=== PATIENT | male | born 1940 | race Caucasian/White ===

== ENCOUNTER 2024-07-08 19:51 | Emergency (ER) | payer MEDICARE, OTHER, SELFPAY ==
[2024-07-08 19:55] VITALS: BP 137/96
[2024-07-08 20:03] VITALS: BP 137/96
--- NOTE | 2024-07-08 20:10 | ED.GENMED ---
Addendum entered and electronically signed by Kelsey Woodruff PA-C 07/12/24 09:22:
urine culture shows aerococcus which is potentuially sensitive to PCN; pt is on augmentin
no treatment change
Original Note:
History of Present Illness
General
Chief Complaint: Fatigue
Source: patient and ambulance crew
Exam Limitations: none
Time Seen by Provider: 07/08/24 19:52
Nursing documentation reviewed up to this point in time: agreed with
History of Present Illness
History of Present Illness:
84-year-old male past medical history of previous stroke hyperlipidemia, diabetes presenting to the emergency department today with concerns of generalized weakness fatigue in the setting of 2 weeks of loose bowel movements. Denies significant
vomiting but has had decreased oral intake. Denies any chest pain shortness of breath fevers.
Past History
Past History
ED Past Medical History: HTN, NIDDM and Other (Chronic pain)
Social History
Tobacco: Non-smoker
Alcohol: None
Living: alone
Review of Systems
Review of Systems
Allergies reviewed?: Yes
All Other Systems: ROS reviewed and negative except as documented in HPI and ROS
Phy Exam
Physical Exam
Physical Exam:
GENERAL: Alert , in no apparent distress
EYE: pupils equal and reactive
NECK: Supple, no significant adenopathy.
ENT: o/p clr, mmm.
CARDIAC: Regular rate and rhythm .
LUNGS: Clear breath sounds bilaterally, no acute respiratory distress, no wheezes/rales/rhonchi
ABDOMEN: Soft, without focal tenderness, no r/g, no cvat
NEUROLOGICAL: Alert and oriented, no focal neuro deficits
SKIN: Warm and dry, skin intact.
MUSCULOSKELETAL: No edema, well perfused.
PSYCH: Normal and appropriate interaction.
Course
Orders/Labs/Results
Orders:
Orders
07/08/24 19:54
C difficile Antigen & Toxins Urgent
[place] Source: Feces/Stool
Specimen Description:
Date Specimen was Collected: 07/08/24
Time Specimen was Collected: 23:49
Stool Culture Urgent
[place] Source: Feces/Stool
Specimen Description:
Date Specimen was Collected: 07/08/24
Time Specimen was Collected: 23:49
07/08/24 19:55
EKG [Electrocardiogram (*1)] Urgent
Reason for Study: Fatigue / Weakness
EKG- Treatment ONCE
07/08/24 20:12
Complete Blood Count/With Diff Urgent
Comprehensive Metabolic Panel Urgent
Lactic Acid Urgent
Lipase Urgent
TSH Reflex To Free T4 Urgent
07/08/24 21:06
Chest [CR Chest - 2 Views ] Urgent
Comment:
Reason For Exam: cough right sided adventitous lung sounds
07/08/24 21:55
0.9% Sodium Chloride 500 ml [Nss] 500 ml IV BOLUS
07/08/24 22:05
Urinalysis Reflex To Culture Urgent
Date Specimen was Collected: 07/08/24
Time Specimen was Collected: 22:03
Urine Microscopic Reflex Cult Urgent
Urine Culture Urgent
[place] Source: U
Specimen Description:
Date Specimen was Collected: 07/08/24
Time Specimen was Collected: 22:03
07/08/24 23:45
Amoxicillin 875 mg/Clav 125 mg [Augmentin 875 mg/125 mg] 1 tablet PO NOW STA
Azithromycin [Zithromax] 500 mg PO NOW STA
Ipratropium/Albuterol Sulfate [Duoneb] 3 ml INH R NOW ONE
Ondansetron Orally Disint [Zofran Odt (Orally Disintegrating)] 4 mg PO NOW STA
Abnormal Lab Results
07/08/24 07/08/24
20:12 22:05
RBC 4.09 L 10^6/uL
(4.70-6.10)
Hgb 12.8 L g/dL
(13.0-18.0)
Hct 36.2 L %
(39.0-52.0)
MCH 31.3 H pg
(27.0-31.0)
Absolute Monos (auto) 0.7 H 10^3/uL
(0.1-0.6)
Monocytes % 9.4 H %
(1.7-9.3)
Sodium 134 L mmol/L
(135-145)
Glucose 132 H mg/dl
(70-99)
Lactic Acid 2.7 H mmol/L
(0.7-2.0)
Total Protein 5.9 L g/dl
(6.3-8.2)
Albumin 3.1 L g/dl
(3.5-5.0)
Ur Occult Blood Reflex 1+ A
(Negative)
Leukocyte Esterase Rfl 1+ A
(Negative)
Urine WBC (Reflex) 26-30 A /HPF
(0-5)
Urine Bacteria (Reflex) Many A
(Negative)
Urine Albumin (Reflex) 1+ A
(Neg - Trace)
07/08/24 20:12
07/08/24 20:12
Vital Signs
Initial and Last Documented VS:
Initial Vital Signs
Pulse Resp BP
77 16 137/96
07/08/24 19:55 07/08/24 19:55 07/08/24 19:55
Last Documented Vital Signs
Temp Pulse Resp BP Pulse Ox
98.1 F 89 19 182/91 97
07/08/24 20:03 07/09/24 02:15 07/09/24 02:15 07/09/24 00:00 07/09/24 00:45
MDM/Problems Addressed
MDM/Problems Addressed:
84-year-old male presenting to the emergency department today with concerns of generalized weakness fatigue over the past 2 weeks in the setting of loose bowel movements as well. Decreased appetite no vomiting. No chest pain shortness of breath
fevers. Patient does have an ongoing cough. Patient has significant bronchial lung sounds potential slight rhonchi to the right lower lobe. X-ray without obvious findings but concern for early pneumonia concerning worsening respiratory status.
Otherwise vital signs are normal. Patient started on antibiotics and also given a breathing treatment. Patient claims he felt much improved concerning this plan to treat as outpatient. Return precautions were given.
*Critical Care Note
Total Time (30-74mins, 75-104mins- exclusive of procedures): Not Applicable
ED Attending Note
-
Portions of this chart may have been created with voice recognition software.� Occasional wrong word or��sound alike� substitutions may have occurred due to the inherent limitations of voice recognition software.
Discharge Plan
Departure
Patient Disposition: Home (Routine Discharge)
Date of Disposition: 07/09/24
Time of Disposition: 02:18
Patient with high blood pressure during this ER visit?: Yes
Condition: Good
Covid-19: Not Applicable
Discharge Problem:
Pneumonia
Instructions: Pneumonia in adults
Prescriptions:
New
amoxicillin-pot clavulanate 875-125 mg tablet
1 tab PO BID 7 Days Qty: 14 0RF
azithromycin 500 mg tablet
500 mg PO DAILY 2 Days Qty: 2 0RF
loperamide [Imodium A-D] 2 mg capsule
2 mg PO Q6H PRN (Reason: loose stool) Qty: 5 0RF
No Action
nifedipine 90 mg Tablet Extended Release
90 mg PO DAILY
glipizide 10 mg Tablet Extended Release 24hr
10 mg PO BID
tamsulosin [Flomax] 0.4 mg Capsule
0.4 mg PO DAILY
metformin 1,000 mg Tablet
1,000 mg PO BID
hydroxychloroquine 200 mg Tablet
200 mg PO DAILY
escitalopram oxalate [Lexapro] 10 mg Tablet
10 mg PO DAILY
insulin NPH isoph U-100 human 100 unit/mL (3 mL) Insulin Pen
0 unit SC QPM
Patient Comments:
01/02/22- family does not know units or last times taking for any medication
cyanocobalamin (vitamin B-12) 1,000 mcg/mL Solution
1,000 mcg IM DAILY Qty: 100 0RF
acetaminophen 325 mg Tablet
650 mg PO Q4HPRN PRN (Reason: Mild Pain / Temp > 101) Qty: 0 0RF
oxycodone 15 mg Tablet
30 mg PO TID Qty: 10 0RF
atorvastatin 40 mg Tablet
40 mg PO QPM Qty: 0 0RF
aspirin 81 mg Tablet,Chewable
81 mg PO DAILY Qty: 0 0RF
clopidogrel 75 mg Tablet
75 mg PO DAILY Qty: 0 0RF
Referrals:
Konstantin Richardson MD [Family Provider] -
Activity Restrictions/Additional Instructions:
You came to the emergency department today with concerns of generalized weakness fatigue and also ongoing cough. Here there is concern for pneumonia. Please take the prescribed antibiotics and also take Imodium to help with diarrhea. Return for
any worsening, new or concerning symptoms.
Interventions
Interventions:
*Risk Screen - Suicide Last Done: 07/08/24 20:03
*General Assessment Last Done: 07/08/24 20:03
*Neglect/Abuse Screening Last Done: 07/08/24 20:03
*ED- Fall Risk Assessment Last Done: 07/08/24 20:03
*ED COVID-19 Vaccine History Last Done: 07/08/24 20:03
Discharge Date and Time
Print Language: SURINAMESE
[2024-07-08 20:24] LABS: % Basophils 0.4 % (0-2); % Eosinophils 1.7 % (0-6); % Immature Granulocytes 0.5 % (0-0.5); % Lymphocytes 24.1 % (20.5-51.1); % Monocytes 9.4 % (1.7-9.3); % Neutrophils 63.9 % (42.2-75.2); Absolute Eosinophils 0.1 10^3/uL (0-0.7); Absolute Lymphocytes 1.8 10^3/uL (1.2-3.4); Absolute Monocytes 0.7 10^3/uL (0.1-0.6); Absolute Neutrophils 4.9 10^3/uL (1.4-6.5); Hematocrit 36.2 % (39.0-52.0); Hemoglobin 12.8 g/dL (13.0-18.0); Mean Corp Hgb Conc. 35.4 g/dL (33.0-37.0); Mean Corpuscular Hgb 31.3 pg (27.0-31.0); Mean Corpuscular Volume 88.5 fL (80.0-94.0); Mean Platelet Volume 8.6 fL (7.4-10.4); Nucleated Red Blood Cells % 0 % (-); Platelet Count 326 10^3/uL (130-400); Red Blood Cell Count 4.09 10^6/uL (4.70-6.10); Red Cell Dist. Width 12.2 % (11.5-14.5); White Blood Cell Count 7.6 10^3/uL (4.8-10.8)
[2024-07-08 20:42] LABS: Lactic Acid 2.7 mmol/L (0.7-2.0)
[2024-07-08 20:52] LABS: ALT (SGPT) 19 U/L (0-50); AST (SGOT) 26 U/L (17-59); Albumin 3.1 g/dl (3.5-5.0); Alkaline Phosphatase 75 U/L (38-126); Blood Urea Nitrogen 19 mg/dl (9-20); Calcium 8.5 mg/dl (8.4-10.2); Carbon Dioxide 29 mmol/L (22-30); Chloride 98 mmol/L (98-107); Estimated Creatinine Clearance 85 ml/min; Glucose 132 mg/dl (70-99); Lipase 41 U/L (23-300); Potassium 3.7 mmol/L (3.5-5.1); Sodium 134 mmol/L (135-145); Total Bilirubin 0.9 mg/dl (0.2-1.3); Total Protein 5.9 g/dl (6.3-8.2); eGFR > 60.00
[2024-07-08 21:00] VITALS: BP 166/70
[2024-07-08 21:12] LABS: TSH Reflex To Free T4 2.99 uIU/ml (0.47-4.68)
[2024-07-08] MEDS: NSS 500 IV (22:03)
[2024-07-08 22:15] LABS: Urine Albumin 1+ (Neg - Trace); Urine Bilirubin Negative (Negative); Urine Character Slightly Cloudy (Clear); Urine Color Yellow; Urine Glucose Negative (Negative); Urine Ketone Negative (Negative); Urine Leukocyte 1+ (Negative); Urine Nitrite Negative (Negative); Urine Occult Blood 1+ (Negative); Urine Specific Gravity 1.015 (<1.030); Urine Urobilinogen Negative (Neg - 1+)
[2024-07-08 22:23] LABS: Urine Squamous Cell 16-20 /LPF (Few)
[2024-07-08 22:24] LABS: Urine Bacteria Many (Negative); Urine Red Blood Cell None Seen /HPF (0-2); Urine White Cell 26-30 /HPF (0-5)
[2024-07-09] VITALS: BP 182/91
[2024-07-09] MEDS: ZOFRAN ODT (ORALLY DISINTEGRATING) 4 MG PO (00:11)
[2024-07-09] MEDS: ZITHROMAX 500 MG PO (00:11)
[2024-07-09] MEDS: AUGMENTIN 875 MG/125 MG 1 TABLET PO (00:11)
[2024-07-09] MEDS: DUONEB 3 ML INH (00:11)
[2024-07-09 02:22] VITALS: BP 171/71
== END 2024-07-09 02:50 | disposition home or self-care (01) ==
LOC: EMR 19:51
PROVIDERS: Physician Assistant; EMERGENCY PHYSICIAN Emergency Medicine; FAMILY PHYSICIAN Family Medicine
DX: J18.9 Pneumonia, unspecified organism (principal); I10 Essential (primary) hypertension; E78.5 Hyperlipidemia, unspecified; E11.9 Type 2 diabetes mellitus without complications
CPT/HCPCS: 99285; 94640; 71046; 80053; 81003; 81015; 83605; 83690; 84443; 85025; 87077; 87086; 93005

== ENCOUNTER 2024-07-28 23:48 | Inpatient (IN) | payer MEDICARE, OTHER, SELFPAY ==
[2024-07-28] VITALS (8 sets, daily range): BP systolic 147–179; BP diastolic 61–95
--- NOTE | 2024-07-28 18:17 | ED.GENMED ---
History of Present Illness
General
Chief Complaint: Male Genito-Urinary Symptoms
Source: patient
Exam Limitations: none
Time Seen by Provider: 07/28/24 18:07
Nursing documentation reviewed up to this point in time: agreed with
History of Present Illness
History of Present Illness:
Patient is a 84-year-old male who reports he has not urinated since early this morning normally. He did urinate a little bit in the afternoon but had a lot of pain with urination. He reports he had diarrhea last week. He denies any fever or
chills. He did mention some left flank pain.
Past History
Past History
ED Past Medical History: HTN, NIDDM and Other (Chronic pain)
Social History
Tobacco: Non-smoker
Alcohol: None
Living: alone
Review of Systems
Review of Systems
Allergies reviewed?: Yes
All Other Systems: ROS reviewed and negative except as documented in HPI and ROS
Constitutional: Reports no symptoms; Denies fever, fatigue or chills
EENT: Reports no symptoms
Respiratory: Reports no symptoms
Cardiac: Reports no symptoms
ABD/GI: Reports no symptoms; Denies abdominal pain, nausea or vomiting
: Reports dysuria, flank pain and urgency
Musculoskeletal: Reports no symptoms
Skin: Reports no symptoms
Neurological: Reports no symptoms
Psychiatric: Reports no symptoms
Phy Exam
General Physical Exam
General Presentation: no apparent distress
General age: appears stated age
General Skin: warm and dry
General Habitus: normal
General Mental: alert
General Hydration: appears well hydrated
Gastrointestinal Exam
Gastrointestinal Exam: normal bowel sounds, non tender and soft
Neurological Exam
Neurological Exam: alert and oriented x3
Musculoskeletal Exam
Musculoskeletal Exam: full ROM
Skin Exam
Skin Exam: normal color and warm/dry
Psychiatric Exam
Psychiatric Exam: normal mood/affect
Course
Orders/Labs/Results
Orders:
Orders
07/28/24 18:24
IV Insert/Care/Rem.- Treatment PRN
0.9% Sodium Chloride 1000 ml [Nss] 1,000 ml IV BOLUS
07/28/24 19:03
Complete Blood Count/With Diff Urgent
Comprehensive Metabolic Panel Urgent
Magnesium Urgent
Urinalysis Reflex To Culture Urgent
Date Specimen was Collected: 07/28/24
Time Specimen was Collected: 18:40
Urine Microscopic Reflex Cult Urgent
Urine Culture Urgent
[place] Source: U
Specimen Description:
Date Specimen was Collected: 07/28/24
Time Specimen was Collected: 18:40
07/28/24 19:12
CT Abd/pel Without Iv Or Oral Urgent
Comment:
Reason For Exam: flank pain /prescribeddysuria
07/28/24 21:20
Add On- LAB Urgent
Tests Added?: magesium
07/28/24 21:21
Piperacillin/Tazo 3.375 Gram [Zosyn] 3.375 gram in 50 ml IV NOW
Potassium Chloride 10% Elixir [KCl Elixir] 40 meq PO NOW STA
07/28/24 21:44
Potassium Chloride [KCl] 40 meq 0.9% Sodium Chloride 250 ml [Nss] 250 ml IV NOW
07/28/24 22:05
EKG [Electrocardiogram (*1)] Urgent
Reason for Study: Other
Other Reason for Exam: low potassium
EKG- Treatment ONCE
07/28/24 22:41
Magnesium Sulfate 2 Gram/50 ml [Magnesium Sulfate] 2 gram in 50 ml IV NOW
07/28/24 23:12
Admit/Transfer Patient As Directed
Co-Sign Provider:
Level of Care: Inpatient admission
Assign to:: Telemetry
Physician / Group: Jose Sinha
Diagnosis: sepsis, UTI, hypokalemia, hypomagnesium
Reason for Telemetry: Arrhythmia
Date to Stop Telemetry: 07/31/24
Time to Stop Telemetry: 11:00
Reason for Hospitalization: sepsis, UTI, hypokalemia, hypomagnesium
Expected length of stay greater than two midnights?: Yes
ELOS- Estimated Length of Stay in days: 3
I certify the patient meets the requirements for IP care: Yes
PRN Pain Medication Management As Directed
May give lesser potent ordered pain med per pt: Yes
preference::
Protocol:: Medication orders for pain may be administered in a
manner that supports deferring to patient preference
when the pt is:
- Requesting an ordered lesser potent pain medication.
Least to most potent pain medications are defined
as: acetaminophen < NSAID < tramadol < opioids
(morphine, oxycodone, hydromorphone).
- Requesting a lesser dose of the same medication IF
ORDERED.
- Requesting a less intrusive route of administration
if both routes are prescribed by the provider (PO <
IV).
07/28/24 23:14
Code Status As Directed
Resuscitation Status: Full Code
07/28/24 23:29
STOOL [C difficile Antigen & Toxins] Routine
[place] Source: Feces/Stool
Specimen Description:
Stool Culture Routine
[place] Source: Feces/Stool
Specimen Description:
07/31/24 11:00
DC Protocol for Telemetry ONCE
Abnormal Lab Results
07/28/24
19:03
WBC 15.6 H 10^3/uL
(4.8-10.8)
RBC 4.15 L 10^6/uL
(4.70-6.10)
Hct 37.4 L %
(39.0-52.0)
MCH 31.6 H pg
(27.0-31.0)
Abs Immat Gran (auto) 0.1 H 10^3/uL
(0-0.05)
Absolute Neuts (auto) 11.7 H 10^3/uL
(1.4-6.5)
Absolute Monos (auto) 1.0 H 10^3/uL
(0.1-0.6)
Neutrophils % 75.3 H %
(42.2-75.2)
Lymphocytes % 17.2 L %
(20.5-51.1)
Potassium 2.9 L mmol/L
(3.5-5.1)
Chloride 95 L mmol/L
(98-107)
Carbon Dioxide 37 H mmol/L
(22-30)
Creatinine 0.5 L mg/dL
(0.7-1.3)
Glucose 140 H mg/dl
(70-99)
Calcium 8.1 L mg/dl
(8.4-10.2)
Magnesium 1.2 L mg/dl
(1.6-2.3)
Total Protein 6.1 L g/dl
(6.3-8.2)
Albumin 3.4 L g/dl
(3.5-5.0)
Ur Occult Blood Reflex 4+ A
(Negative)
Leukocyte Esterase Rfl 3+ A
(Negative)
Urine RBC 50-60 A /HPF
(0-2)
Urine WBC (Reflex) >100 A /HPF
(0-5)
Urine Bacteria (Reflex) Few A
(Negative)
Urine Albumin (Reflex) 3+ A
(Neg - Trace)
07/28/24 19:03
07/28/24 19:03
Vital Signs
Initial and Last Documented VS:
Initial Vital Signs
BP
175/95
07/28/24 17:45
Last Documented Vital Signs
Temp Pulse Resp BP Pulse Ox
97.9 F 107 23 154/87 97
07/28/24 17:49 07/29/24 00:15 07/29/24 00:15 07/29/24 00:07 07/29/24 00:11
Policy Change Clerk consulted with Physician
Policy Change Clerk consulted with physician?: Yes
Name of Physician Consulted: Giulia
MDM/Problems Addressed
MDM/Problems Addressed:
Patient is an 84-year-old male who presented to the ER for evaluation of difficulty urinating. He described pain with urination and had some difficulty emptying his bladder. He was not retaining on arrival. He does mention he had diarrhea last
week and had a little flank pain. Patient presents in no acute distress his white count however is elevated 15,000 and his urine is obviously infected. CAT scan is negative for hydro no stone there is circumferential urinary bladder wall
thickening surrounding inflammatory changes consistent with cystitis.
Prior micro reviewed and IV Zosyn ordered. In addition patient was found to have low potassium and given 40 milliequivalents IV and 1 dose orally will admit to the hospitalist
Chronic conditions affecting care:
IDDM
*Radiology
Radiology exam reviewed: radiology read reviewed
*Pulse Oximetry
Patient hypoxic: no
*Critical Care Note
Total Time (30-74mins, 75-104mins- exclusive of procedures): Not Applicable
Data Reviewed
Review of Other/Old Records Reveals: Labs
ED Attending Note
-
Portions of this chart may have been created with voice recognition software.� Occasional wrong word or��sound alike� substitutions may have occurred due to the inherent limitations of voice recognition software.
Discharge Plan
Departure
Patient Disposition: Admit
Date of Disposition: 07/28/24
Time of Disposition: 22:06
Admit to: Med/Surg
Admit to doctor: Hospitalist
Presentation/result/management discussed w/ accepting MD/DO: Hospitalist
Patient with high blood pressure during this ER visit?: Yes
Condition: Fair
Covid-19: Not Applicable
Discharge Problem:
Acute UTI, Acute hypokalemia
Interventions
Interventions:
*Risk Screen - Suicide Last Done: 07/28/24 19:17
*General Assessment Last Done: 07/28/24 17:49
*Neglect/Abuse Screening Last Done: 07/28/24 19:17
*ED- Fall Risk Assessment Last Done: 07/28/24 19:17
*ED COVID-19 Vaccine History Last Done: 07/28/24 19:17
ED-Male Genitourinary Assessment Last Done: 07/28/24 19:17
[2024-07-28] MEDS: NSS 1000 IV (19:13)
[2024-07-28 19:15] LABS: % Basophils 0.3 % (0-2); % Eosinophils 0.4 % (0-6); % Immature Granulocytes 0.4 % (0-0.5); % Lymphocytes 17.2 % (20.5-51.1); % Monocytes 6.4 % (1.7-9.3); % Neutrophils 75.3 % (42.2-75.2); Absolute Basophils 0.1 10^3/uL (0-0.2); Absolute Eosinophils 0.1 10^3/uL (0-0.7); Absolute Immature Granulocytes 0.1 10^3/uL (0-0.05); Absolute Lymphocytes 2.7 10^3/uL (1.2-3.4); Absolute Neutrophils 11.7 10^3/uL (1.4-6.5); Hematocrit 37.4 % (39.0-52.0); Hemoglobin 13.1 g/dL (13.0-18.0); Mean Corpuscular Hgb 31.6 pg (27.0-31.0); Mean Corpuscular Volume 90.1 fL (80.0-94.0); Nucleated Red Blood Cells % 0 % (-); Platelet Count 219 10^3/uL (130-400); Red Blood Cell Count 4.15 10^6/uL (4.70-6.10); Red Cell Dist. Width 14.4 % (11.5-14.5); Urine Albumin 3+ (Neg - Trace); Urine Bilirubin Negative (Negative); Urine Character Cloudy (Clear); Urine Color Brown; Urine Glucose Negative (Negative); Urine Ketone Negative (Negative); Urine Leukocyte 3+ (Negative); Urine Nitrite Negative (Negative); Urine Occult Blood 4+ (Negative); Urine Urobilinogen Negative (Neg - 1+); White Blood Cell Count 15.6 10^3/uL (4.8-10.8)
[2024-07-28 19:31] LABS: Urine Red Blood Cell 50-60 /HPF (0-2); Urine Squamous Cell 0-2 /LPF (Few)
[2024-07-28 19:32] LABS: Urine Bacteria Few (Negative); Urine White Cell >100 /HPF (0-5)
[2024-07-28 19:34] LABS: ALT (SGPT) 21 U/L (0-50); AST (SGOT) 32 U/L (17-59); Albumin 3.4 g/dl (3.5-5.0); Alkaline Phosphatase 87 U/L (38-126); Blood Urea Nitrogen 15 mg/dl (9-20); Calcium 8.1 mg/dl (8.4-10.2); Carbon Dioxide 37 mmol/L (22-30); Chloride 95 mmol/L (98-107); Estimated Creatinine Clearance 99 ml/min; Glucose 140 mg/dl (70-99); Potassium 2.9 mmol/L (3.5-5.1); Sodium 140 mmol/L (135-145); Total Protein 6.1 g/dl (6.3-8.2); eGFR > 60.00
[2024-07-28] MEDS: KCL ELIXIR 40 MEQ PO (21:47)
[2024-07-28] MEDS: ZOSYN 50 IV (21:47)
[2024-07-28 21:53] LABS: Magnesium 1.2 mg/dl (1.6-2.3)
--- NOTE | 2024-07-28 22:07 | HPS.HSE ---
Addendum entered and electronically signed by Jose Sinha DO 07/28/24 23:51:
Patient seen and examined independently. Agree with findings and plan as set forth by LING Jones.
Patient is an 84y F with PMH significant for hypertension, RA, DM-II and chronic back pain who presents to ED complaining of urinary urgency. Patient describes a need to urinate / difficulty urinating. He states that he feels 'dried out' and
has trouble passing urine. Patient reports a prior history of UTI / prostatitis. He also notes recent issues with loose stools and fecal incontinence - reporting off-and-on diarrhea for the past 3-4 weeks.
Patient was seen in the ED here last month and diagnosed with pneumonia. He was discharged on Augmentin and Zithromax at that time. Urine testing done during that visit was positive for > 100k CFU of Aerococcus.
Ass:
UTI
Sepsis secondary to the above
Hypokalemia
Hypomagnesemia
Tachycardia
Benign Hypertension
DM-II
Depression
Chronic Pain Syndrome
Chronic Opioid Dependence
BPH
Plan:
Admit for further evaluation and treatment.
Continue IV abx pending culture data.
Check PSA.
Bladder scan protocol.
Follow for clinical improvement.
Continue IVFs / electrolyte replacement. Repeat in AM.
Monitor on tele overnight. Repeat EKG in AM.
EKG irregular - but appears to be consistent with sinus arrhythmia / PACs.
Consider Cardiology evaluation if confirmed A-Fib.
Hold PO hypoglycemic medications. Follow glucose and cover with SSI if needed.
Continue usual chronic pain regimen - follow-up with Pain Management as an outpatient.
Original Note:
Family Physician
-
Family Physician: Konstantin Richardson
Chief Complaint
-
urinary symptoms
History of Present Illness
Patient is a 84-year-old male with past medical history significant for hypertension, DM-II, rheumatoid arthritis, BPH, chronic pain syndrome/opioid dependence, depression and obesity who presented to [facility] ED for evaluation of difficulty urinating.
Patient reports that this afternoon he felt he needed to urinate and was unable to do so. He reported the discomfort to the facility nurse who sent him to ED for evaluation and treatment. Patient states he felt the urge to urinate but was unable to
go, after arriving in ED and getting fluids he was able to urinate a little bit and he reports he had significant pain the first time he went and has since improved with continued episodes of urinating. He denies any abdominal, flank or back pain.
He reports having pneumonia a few weeks ago. Denies any fever, chills, nausea, vomiting, constipation or diarrhea. Patient reports previous UTIs and issues with prostate.
Medical History
Past Medical History
Past Medical History: Reports Other
Additional Past Medical History:
Hypertension
DM-II
Rheumatoid Arthritis
BPH
Chronic Pain Syndrome / Opioid Dependence
Depression
Obesity
Past Surgical History: Reports Other
Additional Past Surgical History:
Left Shoulder Surgery
Left HERMAN
Multiple Knee Arthroscopies
Abdominal Herniorrhaphy
Cholecystectomy
Social History
Tobacco: Non-smoker
Alcohol: Occasional
Drug: None
Living: Alone
Family History
Family History: Adopted
Allergies / Home Medications
Allergies reflects when Allergies were last updated in [employer] [facility].
Home Medications with original date entered in [facility]
Allergy/Medication List:
Allergies
Allergy/AdvReac Type Severity Reaction Status Date / Time
levofloxacin [From Levaquin] Allergy Unknown Unknown Verified 07/08/24 20:01
morphine Allergy Unknown Unknown Verified 07/08/24 20:01
Home Medications
glipizide 10 mg tablet, extended release 24 hr 10 mg PO BID Diabetes 01/02/22
metformin 1,000 mg tablet 1,000 mg PO BID Diabetes 01/02/22
acetaminophen 500 mg tablet (Tylenol Extra Strength) 1,000 mg PO TID 07/28/24
ammonium lactate 12 % topical cream 1 applic topical DAILY arms and legs 07/28/24
bisacodyl 5 mg tablet,delayed release 5 mg PO DAILY 07/28/24
carvedilol 6.25 mg tablet 6.25 mg PO BID 07/28/24
duloxetine 20 mg capsule,delayed release 20 mg PO DAILY 07/28/24
emollient combination no.110 (Eucerin Intensive Repair lotion) 1 ea topical DAILY 07/28/24
furosemide 20 mg tablet 20 mg PO DAILYPRN PRN edema 07/28/24
loperamide 2 mg capsule (Imodium A-D) 2 mg PO Q6HPRN PRN loose stool 07/28/24
oxycodone 20 mg tablet 20 mg PO TID 07/28/24
polyethylene glycol 3350 17 gram oral powder packet (Miralax) 17 g PO DAILYPRN PRN constipation 07/28/24
psyllium husk 0.52 gram capsule 1.04 g PO DAILY 07/28/24
vit C 226 mg-vit E 90 mg-copper 0.8 mg-zinc oxide-lutein 5 mg capsule (PreserVision Lutein) 1 cap PO BID 07/28/24
zinc oxide 20 % topical ointment 1 applic topical DAILYPRN PRN incontinence/bowel leakage 07/28/24
zinc oxide 20 % topical ointment 1 applic topical TID bottom/gluteal fold 07/28/24
Review of Systems
-
History Source: Patient
Constitutional: Reports No Symptoms
EENT: Reports No Symptoms
Respiratory: Reports No Symptoms
Cardiac: Reports No Symptoms
Abdomen/GI: Reports No Symptoms
: Reports Dysuria and Difficulty Voiding
Musculoskeletal: Reports No Symptoms
Skin: Reports No Symptoms
Neurological: Reports No Symptoms
Endocrine: Reports No Symptoms
Hematologic/Lymphatic: Reports No Symptoms
Psych: Reports No Symptoms
Physical Exam
Vital Signs
Vital Signs
Temp Pulse Resp BP Pulse Ox
97.9 F 106 24 162/61 98
07/28/24 17:49 07/28/24 21:45 07/28/24 21:45 07/28/24 21:00 07/28/24 21:00
Physical Exam
General: Well Developed, Well Nourished, No Apparent Distress, Comfortable and Conversant
HEENT: NormoCephalic, Moist mucous membranes, Atraumatic, [place] Conjunctivae, Nose Appears Normal, Ears Appear Normal and Hearing Impaired
Respiratory: Clear and Non Labored Respirations
Cardiac: S1/S2 and Irregular Rhythm; No Murmur or Rub
GI: Soft, Non Tender, Non Distended and Normal Bowel Sounds; No Organomegaly
Rectal: Deferred by Provider
Genito-urinary: Turbid Urine and No costovertebral tender
Musculoskeletal: No Clubbing, No Cyanosis and No Edema
Skin: IV/Catheter Site
Neuro: Awake, Alert and Nonfocal/grossly intact
Psych: Calm
Laboratory Results
-
07/28/24 19:03
07/28/24 19:03
Laboratory Results
Total Bilirubin 1.0 mg/dl (0.2-1.3) 07/28/24 19:03
AST 32 U/L (17-59) 07/28/24 19:03
ALT 21 U/L (0-50) 07/28/24 19:03
Alkaline Phosphatase 87 U/L (38-126) 07/28/24 19:03
Data Reviewed
-
CT Scan: Report Reviewed by me (Abd/Pel: No hydronephrosis. No renal calculus. There is circumferential urinary bladder wall thickening with surrounding inflammatory changes consistent with cystitis. Colonic diverticulosis. Right basilar opacity
could represent atelectasis, less likely pneumonia.)
Lab Data: Labs Reviewed by me (WBC 15.6, Neut 75.3, K+ 2.9, Mag 1.2)
Impression/Plan
-
IMPRESSION/PLAN:
#sepsis likely 2/2 urinary tract infection
WBC 15.6, Neut 75.3
UA: indicative of UTI
Urine Cx: pending
Abd/Pel CT: No hydronephrosis. No renal calculus. There is circumferential urinary bladder wall thickening with surrounding inflammatory changes consistent with cystitis.
Colonic diverticulosis.
Right basilar opacity could represent atelectasis, less likely pneumonia.
- Admit to telemetry
- IV antibiotics
- Flomax
- supportive care
#hypokalemia
K+ 2.9
- monitor BMP
- replete as indicated
#hypomagnesium
Mag 1.2
- monitor BMP
- replete as indicated
#tachycardia
- EKG in morning
- maintain on telemetry
#Hypertension
- continue carvedilol, furosemide
#DM-II
- hold glipizide, metformin
- AccuCheck AC & HS
- SSI
#Chronic Pain Syndrome / Opioid Dependence
- continue oxycodone
- review with pain management
#Depression
- continue duloxetine
#Obesity
- encourage balanced diet with exercise for a goal of weight loss
#Rheumatoid Arthritis
#BPH
Code status: full code
DVT Prophylaxis: Lovenox sq
[2024-07-28] MEDS: KCL 270 MEQ IV (22:14)
[2024-07-28] MEDS: MAGNESIUM SULFATE 50 IV (22:53)
[2024-07-29 00:07] VITALS: BP 154/87
[2024-07-29 01:06] VITALS: BP 161/89
[2024-07-29] MEDS: LR 1000 IV (01:44)
[2024-07-29] MEDS: ZOSYN 50 IV ×4 (06:04→21:41)
[2024-07-29 06:08] LABS: Hematocrit 34.4 % (39.0-52.0); Hemoglobin 12.2 g/dL (13.0-18.0); Mean Corp Hgb Conc. 35.5 g/dL (33.0-37.0); Mean Corpuscular Hgb 31.6 pg (27.0-31.0); Mean Corpuscular Volume 89.1 fL (80.0-94.0); Platelet Count 216 10^3/uL (130-400); Red Blood Cell Count 3.86 10^6/uL (4.70-6.10); Red Cell Dist. Width 14.4 % (11.5-14.5); White Blood Cell Count 9.9 10^3/uL (4.8-10.8)
[2024-07-29] MEDS: ROXICODONE 20 MG PO ×3 (06:14→21:41)
[2024-07-29 06:27] LABS: Blood Urea Nitrogen 11 mg/dl (9-20); Calcium 7.6 mg/dl (8.4-10.2); Carbon Dioxide 39 mmol/L (22-30); Chloride 98 mmol/L (98-107); Estimated Creatinine Clearance 99 ml/min; Glucose 196 mg/dl (70-99); Magnesium 1.6 mg/dl (1.6-2.3); Potassium 2.8 mmol/L (3.5-5.1); Sodium 140 mmol/L (135-145); eGFR > 60.00
[2024-07-29 06:53] LABS: PSA, Total - Screen 1.05 ng/ml (0.0-4.0)
[2024-07-29 08:36] LABS: Glucose - Point of Care 193 mg/dl (70-99)
--- NOTE | 2024-07-29 08:46 | W.PN.HOSP.TC ---
Today's Communication/Plan
-
Potassium supplement, may need to hold Lasix until K has normalized
Assessment / Plan
Assessment / Plan
#sepsis likely 2/2 urinary tract infection
WBC 15.6-->9.9, better
UA: indicative of UTI
Urine Cx: pending (UTI 07/08/24 demonstrated Aerococcus, pt seen in ER for PNA and was dc on Augmentin)
Abd/Pel CT: No hydronephrosis. No renal calculus. There is circumferential urinary bladder wall thickening with surrounding inflammatory changes consistent with cystitis.
Colonic diverticulosis.
Right basilar opacity could represent atelectasis, less likely pneumonia.
- Admit to telemetry
- IV antibiotics (Zosyn3.375 IV q6h)
- Flomax
- supportive care
#hypokalemia
K+ 2.9-->2.8
change IVF and add standing dose of oral KCl
- monitor BMP
- replete as indicated
#hypomagnesium
Mag 1.2-->1.6
- monitor BMP
- replete as indicated
#tachycardia
- EKG in morning
- maintain on telemetry
#Hypertension
- continue carvedilol, furosemide
#DM-II
- hold glipizide, metformin
- AccuCheck AC & HS
- SSI
#Chronic Pain Syndrome / Opioid Dependence
- continue oxycodone
- review with pain management
#Depression
- continue duloxetine
#Obesity
- encourage balanced diet with exercise for a goal of weight loss
#Rheumatoid Arthritis
#BPH
Code status: full code
DVT Prophylaxis: Lovenox sq
Anticipated Discharge: > 48 hours
Subjective/Interval History
-
Date of Service: July 29, 2024
generally feeling better since admission
Objective Data
-
Labs:
Laboratory Results
07/29/24
05:52
WBC 9.9
Hgb 12.2 L
Hct 34.4 L
Plt Count 216
Sodium 140
Potassium 2.8 L
Chloride 98
Carbon Dioxide 39 H
BUN 11
Creatinine 0.5 L
Glucose 196 H
Calcium 7.6 L
Vital Signs:
Vital Signs
Temp Pulse Resp BP Pulse Ox
97.9 F 98 25 154/87 96
07/28/24 17:49 07/29/24 01:00 07/29/24 00:30 07/29/24 00:07 07/29/24 02:34
I&O
07/28/24 07/29/24 07/30/24
06:59 06:59 06:59
Intake Total 1130 / 1130
Output Total 1300 / 1300
Balance -170 / -170
Review of Systems
-
History Source: Patient and Coordinated Provider
Constitutional: Denies Fever
Respiratory: Reports No Symptoms
Cardiac: Reports No Symptoms
Genitourinary: Reports Dysuria, Frequency and Urgency
Physical Exam
-
General: Well Developed, Well Nourished and No Apparent Distress
HEENT: Normocephalic, Atraumatic and Moist Mucous Membranes
Respiratory: Clear to Auscultation; Negative Wheezes, Rales or Rhonchi
Cardiac: Regular Rhythm and S1/S2
GI: Soft, Nontender and Nondistended
Musculoskeletal: No Clubbing and No Cyanosis; Negative No Edema (trace edema)
Neuro: Awake and Alert
[2024-07-29 09:30] LABS: Glycohemoglobin (HgbA1c) 5.9 % (4.0-5.6)
--- NOTE | 2024-07-29 10:37 | CM ---
Patient seen at bedside in ED. Patient states that he now lives at [facility]; Personal care facility and uses the [facility] PT/OT there. Patient stated that he lives alone. Patient sstates he is independent but has been sick for the last month.
Patient PCP is Dr. Conn, but chart indicated Dr. Richardson and he uses the [facility] in [place]. Patient states that he currently has no assistance for staff at [facility]. Patient has been at [facility] and had [facility] nursing in his prior living
arrangement at the [facility]. Patient states that he has been relearning how to use the walker with [facility] pt. Patient was open to going to [facility] pending PT/OT assessment and physician assessments. CM will continue to follow for discharge
planning needs.
Plan; return to Personal Care with PT/OT vs SNF
[2024-07-29] MEDS: NOVOLOG FLEXPEN-LOW RESISTANCE SC (10:46)
[2024-07-29] MEDS: D5/0.45%NSS with KCL 20 MEQ 1000 IV (10:48)
[2024-07-29] MEDS: METAMUCIL, KONSYL PO (10:57)
[2024-07-29] MEDS: OCUVITE SOFTGEL 1 CAP PO ×2 (10:57→21:40)
[2024-07-29] MEDS: TYLENOL 1000 MG PO ×3 (10:57→21:41)
[2024-07-29 10:58] VITALS: BP 182/79
[2024-07-29] MEDS: DULCOLAX PO (10:58)
[2024-07-29] MEDS: FLOMAX 0.4 MG PO (10:58)
[2024-07-29] MEDS: CYMBALTA DELAYED RELEASE 20 MG PO (10:58)
[2024-07-29] MEDS: COREG 6.25 MG PO ×2 (10:59→21:40)
[2024-07-29] MEDS: HYDROPHOR 1 APPLIC TOPICAL (11:06)
[2024-07-29] MEDS: ZINC OXIDE OINTMENT 1 APPLIC TOPICAL ×3 (11:07→21:45)
[2024-07-29] MEDS: KCL ELIXIR PO (11:42)
[2024-07-29] MEDS: KCL ELIXIR 20 MEQ PO ×2 (11:48→21:40)
[2024-07-29 13:00] LABS: Glucose - Point of Care 311 mg/dl (70-99)
[2024-07-29] MEDS: NOVOLOG FLEXPEN-LOW RESISTANCE 4 UNITS SC (13:22)
--- NOTE | 2024-07-29 13:38 | WOUNDNOTE ---
[facility] RN NOTE: Reviewed chart and met with patient. Patient admitted with openings on buttocks likely related to MASD. Patient also admitted with stage 1 PI to heels and buttocks. He also has a rash on his left posterior leg but he denies itching.
Patient is incontinent of bowel and bladder and is wheelchair bound. He turns with some assistance and reports good appetite. 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 RN Roslyn aware. No-sting
barrier wipe and adhesive foam applied to heels. Heels off-loaded with pillows under calves. Calazime applied to buttocks and incontinence care provided. Order, discharge and care plan updated. Will follow as needed.
--- NOTE | 2024-07-29 13:45 | WOUNDNOTE ---
BUTTOCKS SKIN FOLDS
--- NOTE | 2024-07-29 13:46 | WOUNDNOTE ---
LEFT POSTERIOR LEG
--- NOTE | 2024-07-29 14:50 | PTCARENOTE ---
Patient admitted from the ER into room 413-01. Vital signs stable. Perineal care provided. Patient educated on use of call villegas and use of TV and bed controls. Patient verbalizes understanding of teaching. Denies pain. Reviewed plan of care with
patient. Patient verbalizes understanding of teaching and denies questions at this time. Resting comfortably in bed without complaint.
[2024-07-29 14:57] VITALS: BP 135/86
[2024-07-29 16:57] LABS: Glucose - Point of Care 242 mg/dl (70-99)
[2024-07-29] MEDS: NOVOLOG FLEXPEN-LOW RESISTANCE 2 UNITS SC (17:10)
[2024-07-29] MEDS: LOVENOX 40 MG SC (18:05)
[2024-07-29 18:15] VITALS: BMI 25.8
[2024-07-29 19:58] VITALS: BP 175/85
[2024-07-29 21:05] LABS: Glucose - Point of Care 250 mg/dl (70-99)
[2024-07-29 23:35] VITALS: BP 168/76
[2024-07-30] MEDS: D5/0.45%NSS with KCL 20 MEQ 1000 IV (00:30)
[2024-07-30 03:23] VITALS: BP 182/101
[2024-07-30] MEDS: ZOSYN 50 IV ×4 (03:54→21:29)
[2024-07-30] MEDS: APRESOLINE 5 MG IV (05:55)
[2024-07-30 07:10] VITALS: BP 182/105
[2024-07-30 07:31] LABS: Glucose - Point of Care 232 mg/dl (70-99)
[2024-07-30 07:55] LABS: % Basophils 0.8 % (0-2); % Eosinophils 5.2 % (0-6); % Immature Granulocytes 0.3 % (0-0.5); % Lymphocytes 18.5 % (20.5-51.1); % Monocytes 7.6 % (1.7-9.3); % Neutrophils 67.6 % (42.2-75.2); Absolute Basophils 0.1 10^3/uL (0-0.2); Absolute Eosinophils 0.4 10^3/uL (0-0.7); Absolute Lymphocytes 1.3 10^3/uL (1.2-3.4); Absolute Monocytes 0.5 10^3/uL (0.1-0.6); Absolute Neutrophils 4.8 10^3/uL (1.4-6.5); Hematocrit 36.8 % (39.0-52.0); Hemoglobin 12.6 g/dL (13.0-18.0); Mean Corp Hgb Conc. 34.2 g/dL (33.0-37.0); Mean Corpuscular Hgb 30.8 pg (27.0-31.0); Mean Platelet Volume 8.9 fL (7.4-10.4); Nucleated Red Blood Cells % 0 % (-); Platelet Count 225 10^3/uL (130-400); Red Blood Cell Count 4.09 10^6/uL (4.70-6.10); Red Cell Dist. Width 14.5 % (11.5-14.5); White Blood Cell Count 7.1 10^3/uL (4.8-10.8)
[2024-07-30 08:07] LABS: Blood Urea Nitrogen 8 mg/dl (9-20); Calcium 7.9 mg/dl (8.4-10.2); Carbon Dioxide 38 mmol/L (22-30); Chloride 96 mmol/L (98-107); Estimated Creatinine Clearance 99 ml/min; Glucose 216 mg/dl (70-99); Potassium 3.2 mmol/L (3.5-5.1); Sodium 139 mmol/L (135-145); eGFR > 60.00
--- NOTE | 2024-07-30 09:30 | PTCARENOTE ---
BP elevated this am 182/105- Dr Anne aware. Awaiting orders. plan of care on going
[2024-07-30] MEDS: NOVOLOG FLEXPEN-LOW RESISTANCE 2 UNITS SC (09:39)
[2024-07-30] MEDS: TYLENOL 1000 MG PO ×3 (09:40→21:29)
[2024-07-30] MEDS: OCUVITE SOFTGEL 1 CAP PO ×2 (09:40→21:28)
[2024-07-30] MEDS: ROXICODONE 20 MG PO ×3 (09:41→21:29)
[2024-07-30] MEDS: KCL ELIXIR 20 MEQ PO (09:41)
[2024-07-30] MEDS: COREG 6.25 MG PO ×2 (09:42→21:28)
[2024-07-30] MEDS: FLOMAX 0.4 MG PO (09:42)
[2024-07-30] MEDS: HYDROPHOR 1 APPLIC TOPICAL (09:43)
[2024-07-30] MEDS: ZINC OXIDE OINTMENT 1 APPLIC TOPICAL ×3 (09:45→21:30)
[2024-07-30] MEDS: DULCOLAX PO (09:46)
[2024-07-30] MEDS: METAMUCIL, KONSYL 1 PACKET PO (09:46)
[2024-07-30] MEDS: CYMBALTA DELAYED RELEASE 20 MG PO (09:49)
[2024-07-30 11:44] VITALS: BP 177/93
[2024-07-30 11:56] LABS: Glucose - Point of Care 281 mg/dl (70-99)
[2024-07-30] MEDS: NOVOLOG FLEXPEN-LOW RESISTANCE 3 UNITS SC (12:55)
--- NOTE | 2024-07-30 13:50 | W.PN.HOSP.TC ---
Today's Communication/Plan
-
Was at [facility], may benefit from short term SNF prior
PT/OT eval
Assessment / Plan
Assessment / Plan
#sepsis likely 2/2 urinary tract infection
WBC 15.6-->9.9-->7.7 better
UA: indicative of UTI
Urine Cx: mixed margaux (UTI 07/08/24 demonstrated Aerococcus, pt seen in ER for PNA and was dc on Augmentin)
Abd/Pel CT: No hydronephrosis. No renal calculus. There is circumferential urinary bladder wall thickening with surrounding inflammatory changes consistent with cystitis.
Colonic diverticulosis.
Right basilar opacity could represent atelectasis, less likely pneumonia.
- Admit to telemetry
will need bladder scan to determine if emptying bladder
- IV antibiotics (Zosyn3.375 IV q6h)
- Flomax
- supportive care
will probably benefit from outpt urologic evaluation. In past had seen urologist at [facility], does not remember name and has been years
#hypokalemia
K+ 2.9-->2.8-->3.2
will stop IVF and supplement orally, still holding Lasix
- monitor BMP
- replete as indicated
#hypomagnesium
Mag 1.2-->1.6
- monitor BMP
- replete as indicated
#tachycardia
- EKG in morning
- maintain on telemetry
#Hypertension
- continue carvedilol, will add low dose Norvasc and follow BP
#DM-II
- hold glipizide, metformin
- AccuCheck AC & HS
- SSI
#Chronic Pain Syndrome / Opioid Dependence
- continue oxycodone
- review with pain management
#Depression
- continue duloxetine
#Obesity
- encourage balanced diet with exercise for a goal of weight loss
#Rheumatoid Arthritis
#BPH
Code status: full code
DVT Prophylaxis: Lovenox sq
Anticipated Discharge: 24 - 48 hours
Subjective/Interval History
-
Date of Service: July 30, 2024
frequent urination
Objective Data
-
Labs:
Laboratory Results
07/30/24
07:05
WBC 7.1
Hgb 12.6 L
Hct 36.8 L
Plt Count 225
Sodium 139
Potassium 3.2 L
Chloride 96 L
Carbon Dioxide 38 H
BUN 8 L
Creatinine 0.6 L
Glucose 216 H
Calcium 7.9 L
Vital Signs:
Vital Signs
Temp Pulse Resp BP Pulse Ox
97.7 F 109 20 177/93 97
07/30/24 11:44 07/30/24 11:44 07/30/24 11:44 07/30/24 11:44 07/30/24 11:44
I&O
07/29/24 07/30/24 07/31/24
06:59 06:59 06:59
Intake Total 1130 / 1130 2110 / 2110
Output Total 1300 / 1300 2350 / 2350
Balance -170 / -170 -240 / -240
Review of Systems
-
History Source: Patient and Coordinated Provider
Constitutional: Denies Fever
Respiratory: Reports No Symptoms (short of breath with exertion)
Cardiac: Reports No Symptoms
Genitourinary: Reports Dysuria, Frequency and Urgency
Physical Exam
-
General: Well Developed, Well Nourished and No Apparent Distress
HEENT: Normocephalic, Atraumatic and Moist Mucous Membranes
Respiratory: Clear to Auscultation and Wheezes (minimal end expiratory wheeze); Negative Rales or Rhonchi
Cardiac: Regular Rhythm and S1/S2
GI: Soft, Nontender and Nondistended
Musculoskeletal: No Clubbing and No Cyanosis; Negative No Edema (trace edema)
Neuro: Awake and Alert
[2024-07-30] MEDS: D5/0.45%NSS with KCL 20 MEQ IV (15:05)
[2024-07-30] MEDS: NORVASC 5 MG PO (15:10)
[2024-07-30] MEDS: FLUSH (NSS) 2 FLUSH IV (15:13)
[2024-07-30 15:17] VITALS: BP 180/90
[2024-07-30 16:46] LABS: Glucose - Point of Care 310 mg/dl (70-99)
[2024-07-30] MEDS: NOVOLOG FLEXPEN-LOW RESISTANCE 4 UNITS SC (18:07)
[2024-07-30] MEDS: LOVENOX 40 MG SC (18:07)
[2024-07-30 19:30] VITALS: BP 174/86
[2024-07-30] MEDS: KCL 20 MEQ PO (21:28)
[2024-07-30 21:41] LABS: Glucose - Point of Care 202 mg/dl (70-99)
[2024-07-30 23:50] VITALS: BP 165/92; BP 168/89
[2024-07-31] VITALS (8 sets, daily range): BP systolic 117–188; BP diastolic 77–97; PULSE 85–89; O2SAT 96
[2024-07-31] MEDS: ZOSYN 50 IV ×4 (03:32→23:00)
[2024-07-31 06:42] LABS: % Eosinophils 6.9 % (0-6); % Immature Granulocytes 0.5 % (0-0.5); % Neutrophils 55.6 % (42.2-75.2); Absolute Basophils 0.1 10^3/uL (0-0.2); Absolute Eosinophils 0.4 10^3/uL (0-0.7); Absolute Lymphocytes 1.6 10^3/uL (1.2-3.4); Absolute Monocytes 0.6 10^3/uL (0.1-0.6); Absolute Neutrophils 3.5 10^3/uL (1.4-6.5); Hematocrit 37.6 % (39.0-52.0); Hemoglobin 12.8 g/dL (13.0-18.0); Mean Corpuscular Hgb 30.5 pg (27.0-31.0); Mean Corpuscular Volume 89.7 fL (80.0-94.0); Mean Platelet Volume 8.6 fL (7.4-10.4); Nucleated Red Blood Cells % 0 % (-); Platelet Count 227 10^3/uL (130-400); Red Blood Cell Count 4.19 10^6/uL (4.70-6.10); Red Cell Dist. Width 14.2 % (11.5-14.5); White Blood Cell Count 6.2 10^3/uL (4.8-10.8)
[2024-07-31 07:05] LABS: Blood Urea Nitrogen 8 mg/dl (9-20); Calcium 8.1 mg/dl (8.4-10.2); Carbon Dioxide 37 mmol/L (22-30); Chloride 96 mmol/L (98-107); Estimated Creatinine Clearance 99 ml/min; Glucose 175 mg/dl (70-99); Potassium 3.4 mmol/L (3.5-5.1); Sodium 138 mmol/L (135-145); eGFR > 60.00
[2024-07-31 08:00] LABS: Glucose - Point of Care 177 mg/dl (70-99)
[2024-07-31] MEDS: ROXICODONE 20 MG PO ×3 (09:22→21:15)
[2024-07-31] MEDS: OCUVITE SOFTGEL 1 CAP PO ×2 (09:23→20:16)
[2024-07-31] MEDS: TYLENOL 1000 MG PO ×3 (09:23→22:59)
[2024-07-31] MEDS: KCL 20 MEQ PO ×2 (09:23→20:16)
[2024-07-31] MEDS: CYMBALTA DELAYED RELEASE 20 MG PO (09:23)
[2024-07-31] MEDS: FLOMAX 0.4 MG PO (09:24)
[2024-07-31] MEDS: COREG 6.25 MG PO ×2 (09:24→20:16)
[2024-07-31] MEDS: NORVASC 5 MG PO (09:24)
[2024-07-31] MEDS: NOVOLOG FLEXPEN-LOW RESISTANCE 1 UNITS SC (09:25)
[2024-07-31] MEDS: DULCOLAX PO (09:25)
[2024-07-31] MEDS: METAMUCIL, KONSYL PO (09:26)
[2024-07-31] MEDS: ZINC OXIDE OINTMENT 1 APPLIC TOPICAL ×3 (09:26→21:16)
[2024-07-31] MEDS: HYDROPHOR 1 APPLIC TOPICAL (09:26)
[2024-07-31] MEDS: FLUSH (NSS) 2 FLUSH IV ×2 (09:27→18:19)
[2024-07-31 12:26] LABS: Glucose - Point of Care 272 mg/dl (70-99)
[2024-07-31] MEDS: NOVOLOG FLEXPEN-LOW RESISTANCE 3 UNITS SC (12:51)
--- NOTE | 2024-07-31 16:39 | W.PN.HOSP.TC ---
Today's Communication/Plan
-
start Mag supplement
recheck labs
continue Zosyn, though Ur cx on admit was neg
Assessment / Plan
Assessment / Plan
#sepsis likely 2/2 urinary tract infection
WBC 15.6-->9.9-->7.7-->6.2 better
UA: indicative of UTI
Urine Cx: mixed margaux (UTI 07/08/24 demonstrated Aerococcus, pt seen in ER for PNA and was dc on Augmentin)
Abd/Pel CT: No hydronephrosis. No renal calculus. There is circumferential urinary bladder wall thickening with surrounding inflammatory changes consistent with cystitis.
Colonic diverticulosis.
Right basilar opacity could represent atelectasis, less likely pneumonia.
- Admit to telemetry
will need bladder scan to determine if emptying bladder
- IV antibiotics (Zosyn3.375 IV q6h)
- Flomax
- supportive care
will probably benefit from outpt urologic evaluation. In past had seen urologist at [facility], does not remember name and has been years
put out 2000 cc during day yesterday, 2600 during night, had 169 cc post void yesterday
#hypokalemia
K+ 2.9-->2.8-->3.2-->3.4
will stop IVF and supplement orally, still holding Lasix
- monitor BMP
- replete as indicated
recheck K tomorrow, if normalized, plan to resume Lasix
#hypomagnesium
Mag 1.2-->1.6
- monitor BMP
- replete as indicated, start supplemental oral Mag
#tachycardia
- EKG in morning
- maintain on telemetry
#Hypertension
- continue carvedilol, will add low dose Norvasc and follow BP, should continue post dc
#DM-II
- hold glipizide, metformin
- AccuCheck AC & HS
- SSI
#Chronic Pain Syndrome / Opioid Dependence
- continue oxycodone
- review with pain management
#Depression
- continue duloxetine
#Obesity
- encourage balanced diet with exercise for a goal of weight loss
#Rheumatoid Arthritis
#BPH
was at [facility] prior to admission, CM will have to contact tomorrow regarding potential dc in near future, ? may require short term SNF
Code status: full code
DVT Prophylaxis: Lovenox sq
Anticipated Discharge: 24 - 48 hours
Subjective/Interval History
-
Date of Service: July 31, 2024
Voice is stronger, concerned about loose stools
Objective Data
-
Labs:
Laboratory Results
07/31/24
06:28
WBC 6.2
Hgb 12.8 L
Hct 37.6 L
Plt Count 227
Sodium 138
Potassium 3.4 L
Chloride 96 L
Carbon Dioxide 37 H
BUN 8 L
Creatinine 0.6 L
Glucose 175 H
Calcium 8.1 L
Vital Signs:
Vital Signs
Temp Pulse Resp BP Pulse Ox
97.8 F 93 20 117/78 96
07/31/24 11:00 07/31/24 11:00 07/31/24 11:00 07/31/24 11:00 07/31/24 11:00
I&O
07/30/24 07/31/24 08/01/24
06:59 06:59 06:59
Intake Total 0 / 2110 1300 / 1300
Output Total 2350 / 2350 4675 / 4675 500 / 500
Balance -240 / -240 -3375 / -3375 -500 / -500
Review of Systems
-
History Source: Patient and Coordinated Provider
Constitutional: Denies Fever
Respiratory: Reports No Symptoms (short of breath with exertion)
Cardiac: Reports No Symptoms
Genitourinary: Reports Dysuria, Frequency and Urgency
Physical Exam
-
General: Well Developed, Well Nourished and No Apparent Distress
HEENT: Normocephalic, Atraumatic and Moist Mucous Membranes
Respiratory: Clear to Auscultation and Wheezes (minimal end expiratory wheeze); Negative Rales or Rhonchi
Cardiac: Regular Rhythm and S1/S2
GI: Soft, Nontender and Nondistended
Musculoskeletal: No Clubbing and No Cyanosis; Negative No Edema (trace edema)
Neuro: Awake and Alert
[2024-07-31 17:27] LABS: Glucose - Point of Care 225 mg/dl (70-99)
[2024-07-31] MEDS: NOVOLOG FLEXPEN-LOW RESISTANCE 2 UNITS SC (18:18)
[2024-07-31] MEDS: LOVENOX 40 MG SC (18:19)
[2024-07-31] MEDS: MAGNESIUM OXIDE 500 MG PO (18:19)
[2024-07-31 21:25] LABS: Glucose - Point of Care 270 mg/dl (70-99)
[2024-08-01 03:29] VITALS: BP 167/88
[2024-08-01] MEDS: ZOSYN 50 IV ×4 (04:01→22:26)
[2024-08-01 07:10] VITALS: BP 187/94
[2024-08-01 08:20] LABS: % Basophils 1.2 % (0-2); % Eosinophils 8.9 % (0-6); % Immature Granulocytes 0.4 % (0-0.5); % Lymphocytes 28.8 % (20.5-51.1); % Monocytes 13.5 % (1.7-9.3); % Neutrophils 47.2 % (42.2-75.2); Absolute Basophils 0.1 10^3/uL (0-0.2); Absolute Eosinophils 0.4 10^3/uL (0-0.7); Absolute Lymphocytes 1.4 10^3/uL (1.2-3.4); Absolute Monocytes 0.7 10^3/uL (0.1-0.6); Absolute Neutrophils 2.3 10^3/uL (1.4-6.5); Hematocrit 38.9 % (39.0-52.0); Hemoglobin 12.9 g/dL (13.0-18.0); Mean Corp Hgb Conc. 33.2 g/dL (33.0-37.0); Mean Corpuscular Hgb 30.4 pg (27.0-31.0); Mean Corpuscular Volume 91.5 fL (80.0-94.0); Mean Platelet Volume 8.9 fL (7.4-10.4); Nucleated Red Blood Cells % 0 % (-); Platelet Count 230 10^3/uL (130-400); Red Blood Cell Count 4.25 10^6/uL (4.70-6.10); Red Cell Dist. Width 14.1 % (11.5-14.5)
[2024-08-01 08:21] LABS: Glucose - Point of Care 175 mg/dl (70-99)
[2024-08-01 09:11] LABS: Blood Urea Nitrogen 11 mg/dl (9-20); Calcium 8.3 mg/dl (8.4-10.2); Carbon Dioxide 36 mmol/L (22-30); Chloride 97 mmol/L (98-107); Estimated Creatinine Clearance 85 ml/min; Glucose 179 mg/dl (70-99); Magnesium 1.6 mg/dl (1.6-2.3); Potassium 3.8 mmol/L (3.5-5.1); Sodium 138 mmol/L (135-145); eGFR > 60.00
[2024-08-01] MEDS: NOVOLOG FLEXPEN-LOW RESISTANCE 1 UNITS SC (09:17)
[2024-08-01] MEDS: TYLENOL 1000 MG PO ×3 (09:18→22:22)
[2024-08-01] MEDS: ROXICODONE 20 MG PO ×3 (09:18→22:21)
[2024-08-01] MEDS: OCUVITE SOFTGEL 1 CAP PO ×2 (09:18→22:21)
[2024-08-01] MEDS: CYMBALTA DELAYED RELEASE 20 MG PO (09:19)
[2024-08-01] MEDS: KCL 20 MEQ PO ×2 (09:19→22:20)
[2024-08-01] MEDS: FLOMAX 0.4 MG PO (09:19)
[2024-08-01] MEDS: MAGNESIUM OXIDE 500 MG PO (09:19)
[2024-08-01] MEDS: COREG 6.25 MG PO ×2 (09:19→22:19)
[2024-08-01] MEDS: DULCOLAX 5 MG PO (09:19)
[2024-08-01] MEDS: HYDROPHOR 1 APPLIC TOPICAL (09:20)
[2024-08-01] MEDS: NORVASC 5 MG PO (09:20)
[2024-08-01] MEDS: METAMUCIL, KONSYL PO (09:20)
[2024-08-01] MEDS: ZINC OXIDE OINTMENT 1 APPLIC TOPICAL ×2 (09:21→17:06)
[2024-08-01 11:35] VITALS: BP 170/85
[2024-08-01 11:42] LABS: Glucose - Point of Care 329 mg/dl (70-99)
[2024-08-01] MEDS: NOVOLOG FLEXPEN-LOW RESISTANCE 4 UNITS SC (12:09)
--- NOTE | 2024-08-01 12:24 | W.PN.HOSP.TC ---
Today's Communication/Plan
-
continue IV abx
follow AM labs
dispo planning
Assessment / Plan
Assessment / Plan
Assessment:
Sepsis POA
UTI
- continue empiric Zosyn, day 08/04 - will switch to Augmentin
- continue Flomax
- follow bladder scans
- outpatient Urology follow up
Hypokalemia
- resolved
- holding oral Lasix
hypomagnesemia
- continue oral Mag
Tachycardia
- EKG in morning
- maintain on telemetry
Essential Hypertension
- continue carvedilol, Norvasc and follow BP
DM-II
- resume glipizide, metformin
- AccuCheck AC & HS
- SSI
Chronic Pain Syndrome / Opioid Dependence
- continue oxycodone
- review with pain management
Depression
- continue duloxetine
Obesity
- encourage balanced diet with exercise for a goal of weight loss
Rheumatoid Arthritis
BPH
DVT ppx: Lovenox
Code: Full
Anticipated Discharge: > 48 hours
Subjective/Interval History
-
Date of Service: August 01, 2024
resting comfortably, no complaints
Objective Data
-
Labs:
Laboratory Results
08/01/24
06:46
WBC 5.0
Hgb 12.9 L
Hct 38.9 L
Plt Count 230
Sodium 138
Potassium 3.8
Chloride 97 L
Carbon Dioxide 36 H
BUN 11
Creatinine 0.7
Glucose 179 H
Calcium 8.3 L
Vital Signs:
Vital Signs
Temp Pulse Resp BP Pulse Ox
97.9 F 85 20 187/94 97
08/01/24 07:10 08/01/24 09:19 08/01/24 07:10 08/01/24 09:19 08/01/24 09:45
I&O
07/31/24 08/01/24 08/02/24
06:59 06:59 06:59
Intake Total 1300 / 1300 920 / 920
Output Total 4675 / 4675 3125 / 3125
Balance -3375 / -3375 -2205 / -2205
Physical Exam
-
General: No Apparent Distress
HEENT: Normocephalic and Atraumatic
Respiratory: Negative Wheezes
Cardiac: Regular Rhythm and S1/S2
GI: Soft and Nontender
Genito-urinary: No Costovertebral Tender
Neuro: AO x 3
Psych: Calm
Data Reviewed
-
Total Time Spent with Patient (in minutes): 42
Labs: Labs Reviewed by me
[2024-08-01 15:15] VITALS: BP 135/77
--- NOTE | 2024-08-01 16:22 | CM ---
Received notification from attending that patient is medically cleared for discharge. He stated that he did not want to go to rehab even though that was the recommendation. Placed a call to patient's son, Amari, who also stated that if possible, they
(family) would rather he return right back to the [facility].
Placed a call to the [facility] and spoke with patient's RN, Jerald, who stated that patient's baseline that he provided is not accurate as he is w/c bound and sleeps on a chair. He self propels where he needs. Jerald stated that he was going to talk to
administration to determine if he could come right back. CM contact information provided.
CM will follow up with Jerald regarding their decision regarding taking patient back, and if they are unable, will have to review facilities with family.
Plan: Case management will continue to follow and assist with discharge planning. Back to [facility] SNF.
[2024-08-01 17:01] LABS: Glucose - Point of Care 259 mg/dl (70-99)
[2024-08-01] MEDS: NOVOLOG FLEXPEN-LOW RESISTANCE 3 UNITS SC (17:07)
[2024-08-01] MEDS: LOVENOX 40 MG SC (17:08)
[2024-08-01 19:43] VITALS: BP 171/94
[2024-08-01 21:24] LABS: Glucose - Point of Care 214 mg/dl (70-99)
[2024-08-01] MEDS: ZINC OXIDE OINTMENT TOPICAL (22:00)
[2024-08-01] MEDS: GLUCOPHAGE 1000 MG PO (22:20)
[2024-08-01] MEDS: GLUCOTROL XL (EXTENDED RELEASE) 10 MG PO (22:24)
[2024-08-01 23:51] VITALS: BP 141/76
[2024-08-02 03:42] VITALS: BP 136/80
[2024-08-02] MEDS: ZOSYN 50 IV ×2 (05:05→10:41)
[2024-08-02] MEDS: FLUSH (NSS) 2 FLUSH IV (05:06)
[2024-08-02 06:00] VITALS: BMI 23.9
[2024-08-02 07:38] LABS: Glucose - Point of Care 119 mg/dl (70-99)
[2024-08-02] MEDS: NOVOLOG FLEXPEN-LOW RESISTANCE SC (07:43)
[2024-08-02] MEDS: ROXICODONE 20 MG PO (08:09)
[2024-08-02] MEDS: GLUCOTROL XL (EXTENDED RELEASE) 10 MG PO (08:09)
[2024-08-02] MEDS: MAGNESIUM OXIDE 500 MG PO (08:10)
[2024-08-02] MEDS: FLOMAX 0.4 MG PO (08:11)
[2024-08-02] MEDS: GLUCOPHAGE 1000 MG PO (08:11)
[2024-08-02] MEDS: DULCOLAX 5 MG PO (08:11)
[2024-08-02] MEDS: OCUVITE SOFTGEL 1 CAP PO (08:11)
[2024-08-02] MEDS: CYMBALTA DELAYED RELEASE 20 MG PO (08:11)
[2024-08-02] MEDS: TYLENOL 1000 MG PO (08:11)
[2024-08-02] MEDS: KCL 20 MEQ PO (08:11)
[2024-08-02] MEDS: HYDROPHOR 1 APPLIC TOPICAL (08:15)
[2024-08-02] MEDS: NORVASC 5 MG PO (08:15)
[2024-08-02] MEDS: COREG 6.25 MG PO (08:15)
[2024-08-02] MEDS: METAMUCIL, KONSYL 1 PACKET PO (08:16)
[2024-08-02] MEDS: ZINC OXIDE OINTMENT 1 APPLIC TOPICAL (08:16)
[2024-08-02 08:17] LABS: Blood Urea Nitrogen 12 mg/dl (9-20); Calcium 8.7 mg/dl (8.4-10.2); Carbon Dioxide 34 mmol/L (22-30); Chloride 98 mmol/L (98-107); Estimated Creatinine Clearance 85 ml/min; Glucose 121 mg/dl (70-99); Potassium 4.1 mmol/L (3.5-5.1); Sodium 138 mmol/L (135-145); eGFR > 60.00
--- NOTE | 2024-08-02 10:10 | CM ---
Addendum entered by Sriram Martinez 08/02/24 11:45:
TATIANNA spoke to [facility] director of billing and she confirmed that pt is accepted for admission today.
Pt is aware, expressed to me his very unhappy feelings going to rehab and as soon as he was told that [facility] declined to accept him and SNF requested, pt became calm, expressed his agreement to [facility]. Pt stated he is very happy to live at [facility] and he trusts them.
to arrange transportation BLS. PMNC completed and left with .
[facility] nursing repprt: [phone]
Discharge instructions fax: [phone]
D/C plan: [facility] SNF today.
Original Note:
TATIANNA following re: discharge planning.
Reviewed pt's chart, met with pt and spoke to pt's son Danny over the phone to update on discharge plan progress.
According to MD pt is medically stable to be discharged today. Both pt and his son are aware, expressed their agreement with discharge. IMM reviewed, placed on chart, pt has a copy.
TATIANNA spoke to [facility] BAILEE RN [place] and he confirmed he spoke to their testing projects administrator and pt cannot be admitted back to [facility] because pt now required 2 people to assist with care and they requested pt goes to a SNF for
a short term rehab before pt's admission back to [facility].
TATIANNA spoke to pt's son Danny, he expressed his agreement with pt going to a SNF. A list of SNFs provided. pt's son preferred [facility] SNF as number one choice. Alternatives: [facility]'s home SNF or [facility] SNF. A referral tp above SNFs made.
TATIANNA spoke to [facility] director of billing and alerted her on pt's discharge today and [facility] SNF is number one choice. Per [facility] director of billing she will review a referral shortly and will come back to me.
D/C planb: possible [facility] SNF today.
Awaiting for determination.
[2024-08-02 11:32] VITALS: BP 158/82
[2024-08-02 11:51] LABS: Glucose - Point of Care 208 mg/dl (70-99)
--- NOTE | 2024-08-02 12:01 | PN.CDI ---
CDI
- -
CDI:
Physician Documentation Request
Admit Date: 07/28/24 23:48
Dear Doctor Shima,
Please review the following and provide your response in the progress notes.
Clinical Indicators:
Pt admitted with sepsis and UTI.
07/29 WO RN: ' Patient also admitted with stage 1 PI to heels and buttocks.'
Physician documentation of the type and location of wounds is required for compliant documentation. Based on the above clinical findings and your assessment, please provide the following in your progress note:
1. Location of the ulcer/wound, including laterality.
2. Type (etiology) of ulcer/wound:
Pressure injury to heels and buttocks POA
Non-presssure injury to heels and buttocks POA
Other
Use of terms such as suspected, likely, concern for, or probable (associated with a specific diagnosis that is being evaluated, monitored, or treated as if it exists) are acceptable and can be coded in the inpatient setting, when documented at the
time of discharge.
Thank you,
Jackelin Weiner RN, BSN
CDI Specialist
[facility]
Please use your independent medical judgment in providing your response.
*Source: National Pressure Ulcer Advisory Panel (NPUAP)
--- NOTE | 2024-08-02 12:37 | W.PN.HOSP.TC ---
Today's Communication/Plan
-
dc to SNF
Assessment / Plan
Assessment / Plan
Assessment:
Sepsis POA
UTI
- continue empiric Zosyn, day / - will switch to Augmentin
- continue Flomax
- follow bladder scans
- outpatient Urology follow up
Hypokalemia
- resolved
- holding oral Lasix
hypomagnesemia
- continue oral Mag
Tachycardia
- EKG in morning
- maintain on telemetry
Essential Hypertension
- continue carvedilol, Norvasc and follow BP
DM-II
- continue glipizide, metformin
- AccuCheck AC & HS
- SSI
Chronic Pain Syndrome / Opioid Dependence
- continue oxycodone
- review with pain management
Depression
- continue duloxetine
Obesity
- encourage balanced diet with exercise for a goal of weight loss
Rheumatoid Arthritis
BPH
stage 1 PI to heels and buttocks
DVT ppx: Lovenox
Code: Full.
More than 30 minutes spent in discharge including
Final examination of the patient
Summarizing hospital stay
Instructions for continuing care to all relevant caregivers
Preparation of discharge records, prescriptions, and referral forms
Total time spent (in minutes): 41
Anticipated Discharge: Today
Subjective/Interval History
-
Date of Service: August 02, 2024
no complaints at present
Objective Data
-
Labs:
Laboratory Results
08/02/24
06:47
Sodium 138
Potassium 4.1
Chloride 98
Carbon Dioxide 34 H
BUN 12
Creatinine 0.7
Glucose 121 H
Calcium 8.7
Vital Signs:
Vital Signs
Temp Pulse Resp BP Pulse Ox
97.3 F 81 20 158/82 97
08/02/24 11:32 08/02/24 11:32 08/02/24 11:32 08/02/24 11:32 08/02/24 11:32
I&O
08/01/24 08/02/24 08/03/24
06:59 06:59 06:59
Intake Total 920 / 920 1100 / 1100
Output Total 3125 / 3125 1974 / 1974
Balance -2205 / -2205 -875 / -875
Physical Exam
-
General: No Apparent Distress
HEENT: Normocephalic and Atraumatic
Respiratory: Negative Wheezes
Cardiac: Regular Rhythm and S1/S2
GI: Soft and Nontender
Neuro: AO x 3
Hematologic / Lymphatic: No Lymphadenopathy
Psych: Calm
Data Reviewed
-
Total Time Spent with Patient (in minutes): 41
Labs: Labs Reviewed by me
[2024-08-02] MEDS: NOVOLOG FLEXPEN-LOW RESISTANCE 2 UNITS SC (12:46)
--- NOTE | 2024-08-02 14:00 | W.DS.TRANS ---
DC Summary - Lineman
-
Discharge Instructions:
Discharge Diagnosis/Procedures Sepsis with UTI
Diet Diabetic, Carb Controlled
Activity As tolerated
Bathing Restrictions None
Other Services OT,PT
Instructions:
Stand-Alone Forms:
Changes to Home Medications: No
Discharge Medications:
DC Medications w/original date entered in [employer]
glipizide 10 mg tablet, extended release 24 hr 10 mg PO BID Diabetes 01/02/22
metformin 1,000 mg tablet 1,000 mg PO BID Diabetes 01/02/22
acetaminophen 500 mg tablet (Tylenol Extra Strength) 1,000 mg PO TID 07/28/24
ammonium lactate 12 % topical cream 1 applic topical DAILY arms and legs 07/28/24
bisacodyl 5 mg tablet,delayed release 5 mg PO DAILY 07/28/24
carvedilol 6.25 mg tablet 6.25 mg PO BID 07/28/24
duloxetine 20 mg capsule,delayed release 20 mg PO DAILY 07/28/24
emollient combination no.110 (Eucerin Intensive Repair lotion) 1 ea topical DAILY 07/28/24
furosemide 20 mg tablet 20 mg PO DAILYPRN PRN edema 07/28/24
loperamide 2 mg capsule (Imodium A-D) 2 mg PO Q6HPRN PRN loose stool 07/28/24
polyethylene glycol 3350 17 gram oral powder packet (Miralax) 17 g PO DAILYPRN PRN constipation 07/28/24
psyllium husk 0.52 gram capsule 1.04 g PO DAILY 07/28/24
vit C 226 mg-vit E 90 mg-copper 0.8 mg-zinc oxide-lutein 5 mg capsule (PreserVision Lutein) 1 cap PO BID 07/28/24
zinc oxide 20 % topical ointment 1 applic topical DAILYPRN PRN incontinence/bowel leakage 07/28/24
zinc oxide 20 % topical ointment 1 applic topical TID bottom/gluteal fold 07/28/24
amlodipine 5 mg tablet 5 mg PO DAILY #30 tabs 08/02/24
amoxicillin 875 mg-potassium clavulanate 125 mg tablet 1 tab PO Q12H #10 tabs 08/02/24
magnesium oxide 500 mg PO DAILY #30 tabs 08/02/24
oxycodone 20 mg tablet 20 mg PO TID #15 tabs 08/02/24
tamsulosin 0.4 mg capsule 0.4 mg PO DAILY #30 caps 08/02/24
Home Medication Changes
Pending Results: No
Total time spent discharging patient (in min): 41
[2024-08-02 15:00] VITALS: BP 138/75
== END 2024-08-02 16:01 | DRG 872 ==
LOC: 4 EAST ACU 23:48
PROVIDERS: Internal Medicine; Nurse Practitioner; Nurse Practitioner Family; ADMITTING PHYSICIAN Hospitalist; ATTENDING PHYSICIAN Internal Medicine; EMERGENCY PHYSICIAN Emergency Medicine; FAMILY PHYSICIAN Family Medicine
DX: A41.9 Sepsis, unspecified organism (principal); F11.20 Opioid dependence, uncomplicated; E87.6 Hypokalemia; N30.90 Cystitis, unspecified without hematuria; E83.42 Hypomagnesemia; I10 Essential (primary) hypertension; E11.9 Type 2 diabetes mellitus without complications; F32.A Depression, unspecified; G89.4 Chronic pain syndrome; N40.0 Benign prostatic hyperplasia without lower urinary tract symptoms; E66.9 Obesity, unspecified; Z68.23 Body mass index [BMI] 23.0-23.9, adult; M06.9 Rheumatoid arthritis, unspecified; K57.30 Diverticulosis of large intestine without perforation or abscess without bleeding; L89.621 Pressure ulcer of left heel, stage 1; L89.611 Pressure ulcer of right heel, stage 1; L89.321 Pressure ulcer of left buttock, stage 1; L89.311 Pressure ulcer of right buttock, stage 1; Z79.899 Other long term (current) drug therapy; Z87.440 Personal history of urinary (tract) infections; Z60.2 Problems related to living alone
CPT/HCPCS: 74176; 80048; 80053; 81003; 81015; 82962; 83036; 83735; 85025; 85027; 87045; 87046; 87070; 87086; 87324; 87427; 87449; 93005; 97163; 97167; G0103

== ENCOUNTER → 2024-08-04 10:28 | Outpatient (REF) | payer OTHER, MEDICARE, SELFPAY ==
[2024-08-04 11:05] LABS: Blood Urea Nitrogen 14 mg/dl (9-20); Calcium 8.6 mg/dl (8.4-10.2); Carbon Dioxide 31 mmol/L (22-30); Chloride 101 mmol/L (98-107); Glucose 85 mg/dl (70-99); Potassium 3.9 mmol/L (3.5-5.1); Sodium 140 mmol/L (135-145); eGFR > 60.00
== END ==
LOC: OLABP 10:28
PROVIDERS: ATTENDING PHYSICIAN Family Medicine
DX: A41.9 Sepsis, unspecified organism (principal); N39.0 Urinary tract infection, site not specified; I10 Essential (primary) hypertension; E87.6 Hypokalemia; E11.9 Type 2 diabetes mellitus without complications; N40.0 Benign prostatic hyperplasia without lower urinary tract symptoms; F11.20 Opioid dependence, uncomplicated; E83.42 Hypomagnesemia; M06.9 Rheumatoid arthritis, unspecified; F32.0 Major depressive disorder, single episode, mild
CPT/HCPCS: 36415; 80048

== ENCOUNTER → 2024-08-05 10:47 | Outpatient (REF) | payer OTHER, MEDICARE, SELFPAY ==
[2024-08-05 11:47] LABS: % Basophils 1.2 % (0-2); % Eosinophils 3.5 % (0-6); % Immature Granulocytes 0.4 % (0-0.5); % Lymphocytes 25.8 % (20.5-51.1); % Monocytes 13.6 % (1.7-9.3); % Neutrophils 55.5 % (42.2-75.2); Absolute Basophils 0.1 10^3/uL (0-0.2); Absolute Eosinophils 0.3 10^3/uL (0-0.7); Absolute Lymphocytes 1.9 10^3/uL (1.2-3.4); Absolute Neutrophils 4.2 10^3/uL (1.4-6.5); Hematocrit 34.5 % (39.0-52.0); Hemoglobin 11.4 g/dL (13.0-18.0); Mean Corpuscular Hgb 31.1 pg (27.0-31.0); Mean Corpuscular Volume 94.3 fL (80.0-94.0); Mean Platelet Volume 9.5 fL (7.4-10.4); Nucleated Red Blood Cells % 0 % (-); Platelet Count 203 10^3/uL (130-400); Red Blood Cell Count 3.66 10^6/uL (4.70-6.10); Red Cell Dist. Width 14.1 % (11.5-14.5); White Blood Cell Count 7.5 10^3/uL (4.8-10.8)
[2024-08-05 12:01] LABS: ALT (SGPT) 31 U/L (0-50); AST (SGOT) 47 U/L (17-59); Albumin 3.1 g/dl (3.5-5.0); Alkaline Phosphatase 66 U/L (38-126); Blood Urea Nitrogen 17 mg/dl (9-20); Calcium 8.5 mg/dl (8.4-10.2); Carbon Dioxide 31 mmol/L (22-30); Chloride 99 mmol/L (98-107); Glucose 66 mg/dl (70-99); Potassium 4.4 mmol/L (3.5-5.1); Sodium 137 mmol/L (135-145); Total Bilirubin 0.7 mg/dl (0.2-1.3); Total Protein 5.7 g/dl (6.3-8.2); eGFR > 60.00
== END ==
LOC: OLABP 10:47
PROVIDERS: ATTENDING PHYSICIAN Family Medicine
DX: F32.0 Major depressive disorder, single episode, mild (principal); A41.9 Sepsis, unspecified organism; N39.0 Urinary tract infection, site not specified; I10 Essential (primary) hypertension; E87.6 Hypokalemia; E11.9 Type 2 diabetes mellitus without complications; N40.0 Benign prostatic hyperplasia without lower urinary tract symptoms; F11.20 Opioid dependence, uncomplicated; E83.42 Hypomagnesemia
CPT/HCPCS: 36415; 80053; 85025

== ENCOUNTER → 2024-08-10 11:49 | Outpatient (REF) | payer OTHER, MEDICARE, SELFPAY ==
[2024-08-10 12:14] LABS: % Basophils 1.1 % (0-2); % Eosinophils 5.3 % (0-6); % Immature Granulocytes 0.2 % (0-0.5); % Lymphocytes 33.9 % (20.5-51.1); % Monocytes 11.5 % (1.7-9.3); Absolute Basophils 0.1 10^3/uL (0-0.2); Absolute Eosinophils 0.2 10^3/uL (0-0.7); Absolute Lymphocytes 1.5 10^3/uL (1.2-3.4); Absolute Monocytes 0.5 10^3/uL (0.1-0.6); Absolute Neutrophils 2.2 10^3/uL (1.4-6.5); Hematocrit 32.5 % (39.0-52.0); Hemoglobin 10.7 g/dL (13.0-18.0); Mean Corp Hgb Conc. 32.9 g/dL (33.0-37.0); Mean Corpuscular Hgb 30.5 pg (27.0-31.0); Mean Corpuscular Volume 92.6 fL (80.0-94.0); Mean Platelet Volume 10.4 fL (7.4-10.4); Nucleated Red Blood Cells % 0 % (-); Platelet Count 198 10^3/uL (130-400); Red Blood Cell Count 3.51 10^6/uL (4.70-6.10); Red Cell Dist. Width 13.5 % (11.5-14.5); White Blood Cell Count 4.5 10^3/uL (4.8-10.8)
[2024-08-10 13:17] LABS: ALT (SGPT) 30 U/L (0-50); AST (SGOT) 31 U/L (17-59); Albumin 2.9 g/dl (3.5-5.0); Alkaline Phosphatase 83 U/L (38-126); Blood Urea Nitrogen 11 mg/dl (9-20); Calcium 8.6 mg/dl (8.4-10.2); Carbon Dioxide 33 mmol/L (22-30); Chloride 100 mmol/L (98-107); Glucose 118 mg/dl (70-99); Potassium 4.5 mmol/L (3.5-5.1); Sodium 139 mmol/L (135-145); Total Bilirubin 0.6 mg/dl (0.2-1.3); Total Protein 5.6 g/dl (6.3-8.2); eGFR > 60.00
== END ==
LOC: OLABP 11:49
PROVIDERS: ATTENDING PHYSICIAN Family Medicine
DX: F32.0 Major depressive disorder, single episode, mild (principal); M06.9 Rheumatoid arthritis, unspecified; F11.20 Opioid dependence, uncomplicated; E83.42 Hypomagnesemia; A41.9 Sepsis, unspecified organism; N39.0 Urinary tract infection, site not specified; I10 Essential (primary) hypertension; E87.6 Hypokalemia; E11.9 Type 2 diabetes mellitus without complications; N40.0 Benign prostatic hyperplasia without lower urinary tract symptoms
CPT/HCPCS: 36415; 80053; 85025

== ENCOUNTER → 2024-08-12 12:46 | Outpatient (REF) | payer OTHER, MEDICARE, SELFPAY ==
[2024-08-12 14:04] LABS: Blood Urea Nitrogen 16 mg/dl (9-20); Calcium 8.7 mg/dl (8.4-10.2); Carbon Dioxide 34 mmol/L (22-30); Chloride 97 mmol/L (98-107); Glucose 181 mg/dl (70-99); Potassium 4.7 mmol/L (3.5-5.1); Sodium 140 mmol/L (135-145); eGFR > 60.00
== END ==
LOC: OLABP 12:46
PROVIDERS: ATTENDING PHYSICIAN Family Medicine
DX: A41.9 Sepsis, unspecified organism (principal); N39.0 Urinary tract infection, site not specified; I10 Essential (primary) hypertension; E87.6 Hypokalemia; E11.9 Type 2 diabetes mellitus without complications; N40.0 Benign prostatic hyperplasia without lower urinary tract symptoms; F11.20 Opioid dependence, uncomplicated; E83.42 Hypomagnesemia; M06.9 Rheumatoid arthritis, unspecified; F32.0 Major depressive disorder, single episode, mild
CPT/HCPCS: 36415; 80048